=== PATIENT | female | born 1955 | race Caucasian/White ===

== ENCOUNTER 2019-03-18 11:10 | Inpatient (IN) | payer OTHER ==
[~2019-03-18] VITALS: Ht 170.2 cm; Wt 81.2 kg
[~2019-03-18 11:10] MED LIST: DICYCLOMINE HCL20 MG PO; FLEXERIL10 MG PO; NORCO 5-325 TA1 EACH PO; OMEPRAZOLE20 MG PO; SIMVASTATIN80 MG PO
[2019-03-18] MEDS ORDERED: CALCIUM 500 +1 EAC1 PO (15:40)
--- NOTE | 2019-03-18 15:45 | NUR ---
PATIENT ARRIVES TO CCU AT 1520 FROM ER. PT IS NOW IN A SINUS RHYTHM. IV DILTIAZEM STOPPED AT THIS TIME. PT'S HR IS IN THE 80-90s. PT AMBULATES INTO THE BATHROOM AND VOIDS 900 ML CLEAR YELLOW URINE.
--- NOTE | 2019-03-18 18:03 | NUR ---
UPDATED DR. MCCLENDON ON OXYGEN NEEDS FOR PATIENT. NO FURTHER ORDERS AT THIS TIME. PT HAS VISITOR IN ROOM NOW. PT FINISHES HER DINNER AND IS RESTING IN BED. DENIES FURTHER NEEDS.
--- NOTE | 2019-03-18 19:43 | EKG ---
[facility] [address] [place] [address] Signed Supraventricular tachycardia Nonspecific ST and T wave abnormality Abnormal ECG When compared with ECG of 18-MAR-2019 11:26, (Unconfirmed) Previous ECG has undetermined rhythm, needs review ST less elevated in Inferior leads ST now depressed in Anterior leads Nonspecific T wave abnormality now evident in Inferior leads T wave inversion now evident in Anterior leads Confirmed by BART MCCLENDON DO ([id number]) on 03/18/2019 7:43:27 PM Electronically Signed By: BART MCCLENDON DO 03/18/19 194 PATIENT NAME: ALBINO GEORGE Electrocardiogram DATE OF : 53 PHYSICIAN: BART MCCLENDON DO REPORT #: [id number] REPORT IS CONFIDENTIAL AND NOT TO BE RELEASED WITHOUT AUTHORIZATION
--- NOTE | 2019-03-18 20:20 | NUR ---
AWAKENS EASILY, STATES FEELS TIRED. AMB TO BR TO VOID, HR UP TO 108 BUT BACK TO 90'S QUICKLY. MILDLY SOB WITH EXERTION AND PT SOUNDS IF HAS UPPER AIWAY CONGESTION. STATES SHE DOES HAVE A COLD. BREATH TONES HAVE FEW SCATTERED INSP WHEEZES(SQUEAKS) SL COURSE EXPIRATION. HAS MOIST COUGH. C/O PAIN RAC IV SITE. DC'S PER PT REQUEST. HAD FLUSHED WELL AND WAS WITHOUT REDNESS.
--- NOTE | 2019-03-18 22:17 | NUR ---
SLEEPING AT THIS TIME. HR 80'S
--- NOTE | 2019-03-19 00:16 | NUR ---
AWAKENED FOR ASSESSMENT. CONT TO FEEL TIRED AND NOT WELL SHE HAS A COLD. BACK TO SLEEP.
--- NOTE | 2019-03-19 00:48 | NUR ---
AMB TO BR TO VOID, YSABEL WELL HR TO 100 THEN BACK TO 80'S. NO SOB. TEMP DEC IN ROOM PER PT REQUEST.
--- NOTE | 2019-03-19 02:20 | NUR ---
SLEEPING. HAS BEEN ON RA SINCE WENT TO BR.
--- NOTE | 2019-03-19 04:00 | NUR ---
CONT TO SLEEP. SAT 91% ON RA.
--- NOTE | 2019-03-19 05:36 | NUR ---
AWAKE FOR LAB DRAW. FEELING BETTER. REMAINS IN SINUS RHYTHM.
--- NOTE | 2019-03-19 05:55 | NUR ---
UP TO BR TO VOID AND HAVE BM. YSABEL WELL. PT NOTED TO BE BREATHING A LITTLE MORE LABORED THAN USUAL, PT STATES IS DUE TO HAVING A COLD. GIVEN COFFEE. IS WATCHING TV.
--- NOTE | 2019-03-19 07:07 | NUR ---
REPORT TO DAY SHIFT. NO CHANGE.
--- NOTE | 2019-03-19 08:15 | NUR ---
PATIENT RESTING IN BED AT THIS TIME WAITING FOR HER BREAKFAST. PATIENT EXPRESSES FRUSTRATION THAT SHE HAS NOT SEEN THE DOCTOR YET THIS MORNING, THAT HER IBS MEDICATION HAS NOT BEEN ORDERED, AND THAT HER OMEPRAZOLE WAS NOT GIVEN EARLIER, NOW SHE HAS TO WAIT 30 MINUTES BEFORE EATING HER BREAKFAST. DISCUSSED THESE THINGS WITH PATIENT AND WILL DISCUSS WITH MD WELL. PT OVERALL SEEMS FRUSTRATED AND A LITTLE ANXIOUS. DISCUSSED PLAN OF DAY WITH PATIENT WELL. PT MORE UNDERSTANDING AFTER DISCUSSING WITH THIS RN. CONTINUE TO MONITOR. PT REMAINS IN A SINUS RHYTHM 70-80s.
--- NOTE | 2019-03-19 09:58 | NUR ---
PT UP TO BR TO VOID 1000 ML CLEAR YELLOW URINE. PT DENIES SOB, CHEST PAIN, OR DIZZINESS WITH AMBULATION. PT REFUSED AM CARES AT THIS TIME AND STATES SHE WANTS TO GO HOME. NO OTHER REQUESTS AT THIS TIME. CALL LIGHT IN REACH.
--- NOTE | 2019-03-19 10:30 | NUR ---
SPOKE WITH PATIENT IN ROOM. PATIENT HOPES TO GO HOME TODAY. PATIENT LIVES WITH LP DENIES ANY NEEDS OR BARRIERS TO DISCHARGING HOME SAFELY. PATIENT DOES NOT HAVE NEBULIZER AT HOME, STATES SHE USES INHALERS AND DOESN'T FEEL SHE NEEDS THIS. EXPLAINED THAT AN RX WILL BE GIVEN IF SHE NEEDS ONE AND SHE CAN TALK WITH RT ABOUT USING ONE AT HOME IF THIS HAPPENS. PT HAS PCP IN [facility] AND HAS NO ISSUES WITH TRANSPORTATION FOR FOLLOW UP SHE STATES. NO FURTHER QUESTIONS, WILL FOLLOW NEEDED.
[2019-03-19] MEDS ORDERED: ATORVASTATIN CA20 MG PO (10:51)
[2019-03-19] MEDS ORDERED: METOPROLOL SUCC25 MG PO (11:40)
--- NOTE | 2019-03-19 11:43 | NUR ---
DR MCCLENDON IN ROOM DISCUSSING DISCHARGE INSTRUCTIONS WITH PT. PT WILL BE SENT HOME WITH METOPROLOL. FOLLOW UP APPOINTMENT WITH PCP MADE. RT IN TO SEE PATIENT ABOUT SMOKING CESSATION. PT EAGER TO GO HOME.
--- NOTE | 2019-03-19 12:09 | NUR ---
MED REC COMPLETE
--- NOTE | 2019-03-19 12:48 | NUR ---
DISCHARGE INSTRUCTIONS GONE OVER WITH PT, PT DENIES ANY FURTHER QUESTIONS AT THIS TIME. SALINE LOCK REMOVED, TIP IN TACT, IV SITE BENIGN. SISTER IN TO ROOM WITH PT'S PERSONAL BELONGINGS AND TO GIVE A RIDE HOME. LAURENCE HILLIARD ASSISTED PT TO FRONT OF HOSPITAL VIA WHEELCHAIR.
--- NOTE | 2019-03-19 14:04 | NUR ---
CONNECTED WITH PT SHE WAS DC'D. SHE WAS ANXIOUS TO GET HOME. EXTENDED A BLESSING, WILL FOLLOW NEEDED
== END 2019-03-19 12:48 | disposition home or self-care (01) | DRG 310 ==
LOC: ED 11:10 → CCU 14:56
PROVIDERS: ADMIT Student in an Organized Health Care Education/Training Program
DX: I48.91 Unspecified atrial fibrillation (principal); E78.5 Hyperlipidemia, unspecified; K21.9 Gastro-esophageal reflux disease without esophagitis; F17.210 Nicotine dependence, cigarettes, uncomplicated; I10 Essential (primary) hypertension; K58.9 Irritable bowel syndrome, unspecified; R06.2 Wheezing; R91.8 Other nonspecific abnormal finding of lung field; Z66 Do not resuscitate; Z88.1 Allergy status to other antibiotic agents; Z88.0 Allergy status to penicillin; Z88.2 Allergy status to sulfonamides; Z79.899 Other long term (current) drug therapy; Z79.891 Long term (current) use of opiate analgesic
CPT/HCPCS: 36415; 71045; 80048; 80053; 83735; 83880; 84100; 84443; 84484; 85025; 93005; 93010; 93306; 94640; 96365; 96366; 96368; 96376; 99285-25; 99406; J1650; J3475; J7040

== ENCOUNTER 2022-08-24 11:52 | Emergency (ER) | payer MEDICARE, OTHER ==
[~2022-08-24] VITALS: Ht 170.2 cm; Wt 78.3 kg
[~2022-08-24 11:52] MED LIST changes: +ADULT ASPIRIN R81 MG PO; +ATORVASTATIN CA20 MG PO; +CALCIUM 500 +1 EAC1 PO; +METOPROLOL SUCC25 MG PO
[2022-08-24] MEDS ORDERED: ROSUVASTATIN CAL5 MG PO (12:09)
[2022-08-24] MEDS ORDERED: MECLIZINE HCL25 MG PO (14:58)
--- NOTE | 2022-08-25 07:19 | EKG ---
[facility] [address] [place] [address] Signed Normal sinus rhythm Normal ECG When compared with ECG of 18-MAR-2019 11:27, Vent. rate has decreased BY [address] no longer depressed in Anterior leads Nonspecific T wave abnormality no longer evident in Inferior leads T wave inversion no longer evident in Anterior leads Confirmed by JOSE G RUFF MD ([id number]) on 08/25/2022 7:19:39 AM Electronically Signed By: JOSE G RUFF MD 08/25/22 0719 PATIENT NAME: ALBINO GEORGE Electrocardiogram DATE OF : 53 PHYSICIAN: JOSE G RUFF MD REPORT #: [id number] REPORT IS CONFIDENTIAL AND NOT TO BE RELEASED WITHOUT AUTHORIZATION
== END 2022-08-24 15:14 | disposition home or self-care (01) ==
LOC: ED 11:52
DX: H81.10 Benign paroxysmal vertigo, unspecified ear (principal); E78.00 Pure hypercholesterolemia, unspecified; K21.9 Gastro-esophageal reflux disease without esophagitis; I48.91 Unspecified atrial fibrillation; F17.200 Nicotine dependence, unspecified, uncomplicated; Z88.1 Allergy status to other antibiotic agents; Z88.0 Allergy status to penicillin; Z88.2 Allergy status to sulfonamides; Z79.899 Other long term (current) drug therapy; Z79.82 Long term (current) use of aspirin
CPT/HCPCS: 36415; 71045; 80053; 81001; 83880; 84484; 85025; 85379; 93005; 93010; 96361; 96374; 96375; 99284-25; A9270; J1885; J2405; J7121

== ENCOUNTER 2023-08-21 18:07 | Emergency (ER) | payer MEDICARE, MEDICAID ==
[~2023-08-21] VITALS: Ht 170.2 cm; Wt 71.3 kg
[~2023-08-21 18:07] MED LIST changes: +AMIODARONE HCL200 MG PO; +MECLIZINE HCL25 MG PO; +METHOCARBAMOL500 MG PO; +REGLAN10 MG PO; +ROSUVASTATIN CA10 MG PO; +ROSUVASTATIN CAL5 MG PO; +WARFARIN SODIUM1 MG PO; +WARFARIN SODIUM5 MG PO
[2023-08-21] MEDS ORDERED: ALBUTEROL/IPRATROPIUM 3 ML NEB ONE (18:17)
[2023-08-21] MEDS ORDERED: ALBUTEROL/IPRATROPIUM 3 ML NEB INH ONE (18:30)
[2023-08-21 18:43] LABS: HEMOGLOBIN 14.2 g/dL (12.0-18.0)
[2023-08-21 18:45] LABS: BASOPHILS 0.5 % (0-2); EOSINOPHILS 0.1 % (0-6); HEMATOCRIT 41.9 % (35.0-50.0); LYMPHOCYTES 11.6 % (24-44); MCH 30.6 (27-36); MCHC 33.8 g/dl (30-36); MCV 90.7 fl (81-99); MONOCYTES 12.2 % (0-12); NEUTROPHILS 75.6 % (39-80); PLATELET COUNT 276 K/uL (140-440); RBC 4.62 M/ul (4.3-5.7); RDW 13.6 (10.5-15.0)
[2023-08-21 19:00] LABS: ALBUMIN 3.4 g/dL (3.4-5.0); ALBUMIN/GLOBULIN RATIO 0.97 (1.1-2.4); ANION GAP 13.5 (7-21); BILIRUBIN, TOTAL 0.4 ng/dL (0.2-1.0); BUN/CREATININE RATIO 11.9 (6.0-28.6); CREATININE, SERUM 0.84 mg/dL (0.55-1.02); MAGNESIUM 1.8 mg/dL (1.8-2.4); POTASSIUM 3.5 mmol/L (3.5-5.1); PROTEIN, TOTAL 6.9 g/dL (6.4-8.2)
[2023-08-21 19:02] LABS: INFLUENZA B NAA NEGATIVE (NEGATIVE); RESPIRATORY SYNCYTIAL VIR NAA NEGATIVE (NEGATIVE)
[2023-08-21] MEDS ORDERED: DEXAMETHASONE SOD PHOS 10 MG/ML VIAL IV ONE (19:30)
[2023-08-21] MEDS ORDERED: OSELTAMIVIR PHOSPHATE 75 MG HOME.PACK PO ONE (19:30)
[2023-08-21] MEDS ORDERED: ACETAMINOPHEN 500 MG TAB PO ONE (19:30)
[2023-08-21] MEDS ORDERED: LACTATED RINGER'S 1,000 ML IV ONE (19:30)
[2023-08-21 20:46] VITALS: BP 130/60
--- NOTE | 2023-08-22 14:13 | EKG ---
[facility] [address] [place], [place] [address] Signed Sinus tachycardia Otherwise normal ECG When compared with ECG of 24-AUG-2022 12:45, No significant change was found Confirmed by CHANCE VILLANUEVA MD ([id number]) on 08/22/2023 2:13:29 PM Electronically Signed By: CHANCE VILLANUEVA 08/22/23 1413 PATIENT NAME: ALBINO GEORGE Electrocardiogram DATE OF : 53 PHYSICIAN: CHANCE VILLANUEVA REPORT #: [id number] REPORT IS CONFIDENTIAL AND NOT TO BE RELEASED WITHOUT AUTHORIZATION
== END 2023-08-21 20:47 | disposition home or self-care (01) ==
LOC: ED 18:07
PROVIDERS: Emergency Medicine
DX: J10.1 Influenza due to other identified influenza virus with other respiratory manifestations (principal); J44.1 Chronic obstructive pulmonary disease with (acute) exacerbation; F17.200 Nicotine dependence, unspecified, uncomplicated; E78.00 Pure hypercholesterolemia, unspecified; K21.9 Gastro-esophageal reflux disease without esophagitis; K58.9 Irritable bowel syndrome, unspecified; I48.91 Unspecified atrial fibrillation; Z90.2 Acquired absence of lung [part of]; Z85.118 Personal history of other malignant neoplasm of bronchus and lung; Z88.1 Allergy status to other antibiotic agents; Z88.0 Allergy status to penicillin; Z88.2 Allergy status to sulfonamides; Z88.7 Allergy status to serum and vaccine; Z79.01 Long term (current) use of anticoagulants; Z79.899 Other long term (current) drug therapy; Z79.82 Long term (current) use of aspirin
CPT/HCPCS: 36415; 71045; 80053; 83735; 84484; 85025; 87502; 93005; 93010; 94640; 96374; 99285-25; A9270; J1100; J7121; U0002